=== PATIENT | female | born 1955 | race Caucasian/White ===

== ENCOUNTER 2017-09-17 11:54 | Emergency (ER) | payer MEDICAID ==
[2017-09-17 12:10] VITALS: BP 147/84
[2017-09-17] MEDS ORDERED: Sodium Chloride 0.9% 10 ML Syringe FLUSH PRN (12:27)
[2017-09-17] MEDS ORDERED: Sodium Chloride 0.9% 1,000 ML IV SCH (12:30)
--- NOTE | 2017-09-17 12:32 | EDM.PDOC ---
ED HPI GENERAL MEDICAL PROBLEM - General Chief Complaint: Genitourinary Problem Stated Complaint: POSS DEHYDRATION Time Seen by Provider: 09/17/17 12:18 Source of Information: Reports: Patient, [facility] Records History Limitations: Reports: No Limitations - History of Present Illness INITIAL COMMENTS - FREE TEXT/NARRATIVE: Patient is a 62-year-old female with a history of Alzheimer's and dementia along with frequent UTIs who presents to the ED with concerns of being dehydrated/ urinary tract infection. Staff notes patients urine is foul- smelling. Patient has some mild pain to the suprpubic region. There's been no fever, nausea/vomiting, diarrhea, or other complaints per patient. - Related Data Allergies Allergy/AdvReac Type Severity Reaction Status Date / Time Penicillins Allergy Hives Verified 09/17/17 12:04 Home Meds: Home Meds Acetaminophen [Tylenol Arthritis Pain] 1 tab PO Q4HR PRN 01/27/15 [History] Calcium Carbonate/Vitamin D3 [Calcium 500-Vit D3 200 Caplet] 1 tab PO BID [History] Citalopram [Citalopram HBr] 1 tab PO DAILY 01/27/15 [History] Furosemide [Lasix] 1 tab PO DAILY 01/27/15 [History] Memantine HCl [Namenda Xr] 1 tab PO DAILY 01/27/15 [History] Metoprolol Tartrate 1 tab PO BID 01/27/15 [History] Multivitamin [Multi-Vitamin Daily] 1 tab PO DAILY 01/27/15 [History] Omeprazole 1 tab PO DAILY 01/27/15 [History] Sucralfate [Carafate] 1 tab PO QID 01/27/15 [History] Levofloxacin [Levaquin] 500 mg PO DAILY #9 tablet 08/13/15 [Rx] Past Medical History HEENT History: Reports: Impaired Vision Other HEENT History: wears eyeglasses Cardiovascular History: Reports: Hypertension Gastrointestinal History: Reports: GERD Other Gastrointestinal History: diaphragmatic hernia Genitourinary History: Reports: UTI, Recurrent Other 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 Social & Family History - Tobacco Use Smoking Status *Q: Never Smoker Second Hand Smoke Exposure: No - Caffeine Use Caffeine Use: Reports: None - Alcohol Use Days Per Week of Alcohol Use: 0 - Recreational Drug Use Recreational Drug Use: No - Living Situation & Occupation Living situation: Reports: Single, Extended Care Facility ED ROS GENERAL - Review of Systems Review Of Systems: ROS reveals no pertinent complaints other than HPI. ED EXAM, RENAL/ - Physical Exam Exam: See Below Exam Limited By: Other (Confused) General Appearance: Alert, WD/WN, No Apparent Distress Ears: Hearing Grossly Normal Nose: Normal Inspection Throat/Mouth: Normal Voice, No Airway Compromise, Other (Mildly dry) Neck: Normal Inspection, Supple Respiratory/Chest: No Respiratory Distress, Lungs Clear, Normal Breath Sounds, No Accessory Muscle Use Cardiovascular: Normal Peripheral Pulses, Regular Rate, Rhythm GI/Abdominal: Normal Bowel Sounds, Soft, No Organomegaly, No Distention, Tender (suprapubic region) Rectal (Female) Exam: Normal Rectal Tone, Black Stool, Heme + Stool. No: Hemorrhoids, Perirectal Abscess, Rectal Fissure, Tenderness Extremities: Normal Inspection, Non-Tender, No Pedal Edema Neurological: Alert, CN II-XII Intact, Normal Cognition, No Motor/Sensory Deficits, Confused Psychiatric: Normal Affect, Normal Mood Skin Exam: Warm, Dry, Intact, Normal Color, No Rash Course - Vital Signs Last Recorded V/S: Last Vital Signs Temp 98.1 F 09/17/17 12:00 Pulse 95 09/17/17 12:00 Resp 18 09/17/17 12:00 BP 147/84 H 09/17/17 12:00 Pulse Ox 100 09/17/17 12:00 - Orders/Labs/Meds Orders: Active Orders 24 hr Category Date Time Status Insert Nguyen Catheter [Insert Urinary Catheter] [OM.PC] Care 09/17/17 12:00 Ordered Stat Peripheral IV Care [RC] . DIRECTED Care 09/17/17 12:27 Active Urinary Catheter Assessment [RC] ASDIRECTED Care 09/17/17 12:00 Active CULTURE BLOOD [BC] Stat Lab 09/17/17 13:15 Received CULTURE BLOOD [BC] Stat Lab 09/17/17 13:30 Received CULTURE URINE [RM] Stat Lab 09/17/17 12:15 Received Hemoccult [OCCULT BLOOD DIAGNOSTIC] [OP] Stat Lab 09/17/17 15:30 Ordered Blood Culture x2 Reflex Set [OM.PC] Stat Oth 09/17/17 12:27 Ordered Peripheral IV Insertion Adult [OM.PC] Stat Oth 09/17/17 12:26 Ordered Labs: Laboratory Tests 09/17/17 09/17/17 09/17/17 Range/Units 12:15 13:15 13:15 WBC 10.30 H (3.98-10.04) K/mm3 RBC 2.80 L (3.98-5.22) M/mm3 Hgb 8.8 L (11.2-15.7) gm/L Hct 28.2 L (34.1-44.9) % MCV 100.7 H (79.4-94.8) fl MCH 31.4 (25.6-32.2) pg MCHC 31.2 L (32.2-35.5) g/dl RDW Std Deviation 50.6 H (36.4-46.3) fL Plt Count 315 (182-369) K/mm3 MPV 10.7 (9.4-12.3) fl Neut % (Auto) 77.8 H (34.0-71.1) % Lymph % (Auto) 10.6 L (19.3-51.7) % [place] % (Auto) 10.4 (4.7-12.5) % Eos % (Auto) 0.6 L (0.7-5.8) Baso % (Auto) 0.1 (0.1-1.2) % Neut # (Auto) 8.02 H (1.56-6.13) K/mm3 Lymph # (Auto) 1.09 L (1.18-3.74) K/mm3 [place] # (Auto) 1.07 H (0.24-0.36) K/mm3 Eos # (Auto) 0.06 (0.04-0.36) K/mm3 Baso # (Auto) 0.01 (0.01-0.08) K/mm3 Sodium 142 (136-145) mEq/L Potassium 4.3 (3.5-5.1) mEq/L Chloride 107 (98-107) mEq/L Carbon Dioxide 28 (21-32) mEq/L Anion Gap 11.3 (5-15) BUN 25 H (7-18) mg/dL Creatinine 1.0 (0.55-1.02) mg/dL Est Cr Clr Drug Dosing 45.14 mL/min Estimated GFR (MDRD) 57 (>60) mL/min BUN/Creatinine Ratio 25.0 H (14-18) Glucose 112 H (74-106) mg/dL Lactic Acid (0.4-2.0) mmol/L Calcium 9.1 (8.5-10.1) mg/dL Total Bilirubin 0.6 (0.2-1.0) mg/dL AST 26 (15-37) U/L ALT 35 (14-59) U/L Alkaline Phosphatase 61 (46-116) U/L C-Reactive Protein 0.8 (<1.0) mg/dL Total Protein 6.5 (6.4-8.2) g/dl Albumin 3.0 L (3.4-5.0) g/dl Globulin 3.5 gm/dL Albumin/Globulin Ratio 0.9 L (1-2) Urine Color Light yellow (Yellow) Urine Appearance Slt cloudy H (Clear) Urine pH 6.0 (5.0-8.0) Ur Specific [place] 1.020 (1.005-1.030) Urine Protein Negative (Negative) Urine Glucose (UA) Negative (Negative) Urine Ketones Negative (Negative) Urine Occult Blood Negative (Negative) Urine Nitrite Positive H (Negative) Urine Bilirubin Negative (Negative) Urine Urobilinogen 0.2 (0.2-1.0) Ur Leukocyte Esterase Negative (Negative) Urine RBC Not seen (0-5) /hpf Urine WBC 0-5 (0-5) /hpf Urine WBC Clumps Not seen (NOT SEEN) /hpf Ur Epithelial Cells Not seen (0-5) /hpf Ur Squamous Epith Cells Not seen (0-5) /hpf Urine Bacteria Moderate H (FEW) /hpf Hyaline Casts 10-20 H (0-5) /lpf Urine Mucus Few (FEW) /hpf 09/17/ Range/Units 13:15 WBC (3.98-10.04) K/mm3 RBC (3.98-5.22) M/mm3 Hgb (11.2-15.7) gm/L Hct (34.1-44.9) % MCV (79.4-94.8) fl MCH (25.6-32.2) pg MCHC (32.2-35.5) g/dl RDW Std Deviation (36.4-46.3) fL Plt Count (182-369) K/mm3 MPV (9.4-12.3) fl Neut % (Auto) (34.0-71.1) % Lymph % (Auto) (19.3-51.7) % [place] % (Auto) (4.7-12.5) % Eos % (Auto) (0.7-5.8) Baso % (Auto) (0.1-1.2) % Neut # (Auto) (1.56-6.13) K/mm3 Lymph # (Auto) (1.18-3.74) K/mm3 [place] # (Auto) (0.24-0.36) K/mm3 Eos # (Auto) (0.04-0.36) K/mm3 Baso # (Auto) (0.01-0.08) K/mm3 Sodium (136-145) mEq/L Potassium (3.5-5.1) mEq/L Chloride (98-107) mEq/L Carbon Dioxide (21-32) mEq/L Anion Gap (5-15) BUN (7-18) mg/dL Creatinine (0.55-1.02) mg/dL Est Cr Clr Drug Dosing mL/min Estimated GFR (MDRD) (>60) mL/min BUN/Creatinine Ratio (14-18) Glucose (74-106) mg/dL Lactic Acid 1.7 (0.4-2.0) mmol/L Calcium (8.5-10.1) mg/dL Total Bilirubin (0.2-1.0) mg/dL AST (15-37) U/L ALT (14-59) U/L Alkaline Phosphatase (46-116) U/L C-Reactive Protein (<1.0) mg/dL Total Protein (6.4-8.2) g/dl Albumin (3.4-5.0) g/dl Globulin gm/dL Albumin/Globulin Ratio (1-2) Urine Color (Yellow) Urine Appearance (Clear) Urine pH (5.0-8.0) Ur Specific [place] (1.005-1.030) Urine Protein (Negative) Urine Glucose (UA) (Negative) Urine Ketones (Negative) Urine Occult Blood (Negative) Urine Nitrite (Negative) Urine Bilirubin (Negative) Urine Urobilinogen (0.2-1.0) Ur Leukocyte Esterase (Negative) Urine RBC (0-5) /hpf Urine WBC (0-5) /hpf Urine WBC Clumps (NOT SEEN) /hpf Ur Epithelial Cells (0-5) /hpf Ur Squamous Epith Cells (0-5) /hpf Urine Bacteria (FEW) /hpf Hyaline Casts (0-5) /lpf Urine Mucus (FEW) /hpf Meds: Medications Discontinued Medications Generic Name Dose Route Start Last Admin Trade Name Freq PRN Reason Stop Dose Admin Sodium Chloride 1,000 mls @ 125 mls/hr 09/17/17 12:30 09/17/17 12:55 Normal Saline IV 125 mls/hr ASDIRECTED BASILIO Administration Nitrofurantoin Macrocrystals 100 mg 09/17/17 14:09 09/17/17 14:22 Macrobid PO 09/17/17 14:10 100 mg ONETIME ONE Administration Pantoprazole Sodium 40 mg 09/18/17 15:15 Protonix Iv IVPUSH 09/18/17 15:16 ONETIME ONE Pantoprazole Sodium 40 mg 09/17/17 15:15 09/17/17 15:42 Protonix Iv IVPUSH 09/17/17 15:16 40 mg ONETIME ONE Administration Sodium Chloride 10 ml 09/17/17 12:27 09/17/17 12:45 Saline Flush FLUSH 10 ml ASDIRECTED PRN Administration Keep Vein Open - Re-Assessments/Exams Free Text/Narrative Re-Assessment/Exam: IV established with normal saline 125 mL per hour. Blood cultures will be obtained along with CBC, chem 14, CRP, UA, lactic acid ,and culture the urine. Labs reviewed: White blood cell count 10.30, hemoglobin 8.8, platelet count 315 , neutrophil percentage is 77.8, neutrophil number is 8.02. Sodium 142, potassium 4.3, creatinine 1.0, glucose 112, lactic acid 1.7, CRP 0.8. UA revealed: Urine appearance slightly cloudy, nitrates positive, bacteria moderate, hyaline cast 10-20, urine rbc's not seen, urine wbc's 0-5. Urine culture has been ordered. We'll go ahead and start her on Macrobid 100 mg by mouth. Will also obtain stool Hemoccult with her low at 8.8 which appears to be trending downward from 2015. Unclear if she has a GI bleed or not. Stool Hemoccult was positive for blood. At this point the GI bleed can be worked up by primary care provider. That is scheduling to have the EGD and colonoscopy. There is no marlene blood present. Vital signs are stable. I did order 09/17/17 15:[address] Dash patients PCP. He will see the patient this coming TR for reevaluation and to facilitate further workup for GI bleed. Requests holding off on starting any antibiotics for UTI until cultures comeback. Discharge instructions as documented. 09/17/17 15:58 Prescription for Prilosec called into [facility]. Departure - Departure Time of Disposition: 15:08 Disposition: DC/[facility] to [facility] Condition: Fair Clinical Impression: Foul smelling urine GI bleed Qualifiers: GI bleed type/associated pathology: unspecified gastrointestinal hemorrhage type Qualified Code(s): K92.2 - Gastrointestinal hemorrhage, unspecified Anemia Qualifiers: Anemia type: unspecified type Qualified Code(s): D64.9 - Anemia, unspecified - Discharge Information Instructions: Anemia, Nonspecific, Gastrointestinal Bleeding, [id number] Referrals: Ravinder Dash MD [Primary Care Provider] - 09/18/17 Forms: ED Department Discharge Additional Instructions: Stool was positive for blood. I did speak with Dr. Dash today and he wishes to have the patient be evaluated tomorrow for reevaluation to facilitate GI bleed workup. In the meantime will have the patient take prilosec 40mg PO q am. UA was not positive for infection thus will await for urine culture to tests. Return to the E.D. for any new or worsening symptoms. Continue taking all home medications as prescribed. - My Orders Last 24 Hours: My Active Orders 09/17/17 12:00 Insert Nguyen Catheter [Insert Urinary Catheter] [OM.PC] Stat Urinary Catheter Assessment [RC] ASDIRECTED 09/17/17 12:15 CULTURE URINE [RM] Stat 09/17/17 12:26 Peripheral IV Insertion Adult [OM.PC] Stat 09/17/17 12:27 Peripheral IV Care [RC] . DIRECTED Blood Culture x2 Reflex Set [OM.PC] Stat 09/17/17 13:15 CULTURE BLOOD [BC] Stat 09/17/17 13:30 CULTURE BLOOD [BC] Stat 09/17/17 15:30 Hemoccult [OCCULT BLOOD DIAGNOSTIC] [OP] Stat - Assessment/Plan Last 24 Hours: My Active Orders 09/17/17 12:00 Insert Nguyen Catheter [Insert Urinary Catheter] [OM.PC] Stat Urinary Catheter Assessment [RC] ASDIRECTED 09/17/17 12:15 CULTURE URINE [RM] Stat 09/17/17 12:26 Peripheral IV Insertion Adult [OM.PC] Stat 09/17/17 12:27 Peripheral IV Care [RC] . DIRECTED Blood Culture x2 Reflex Set [OM.PC] Stat 09/17/17 13:15 CULTURE BLOOD [BC] Stat 09/17/17 13:30 CULTURE BLOOD [BC] Stat 09/17/17 15:30 Hemoccult [OCCULT BLOOD DIAGNOSTIC] [OP] Stat
[2017-09-17] MEDS ORDERED: Nitrofurantoin Monohydrate/Macrocrystalline 100 MG Cap PO ONE (14:09)
[2017-09-17] MEDS ORDERED: Pantoprazole 40 MG Vial IVPUSH ONE (15:15)
[2017-09-18] MEDS ORDERED: Pantoprazole 40 MG Vial IVPUSH ONE (15:15)
== END 2017-09-17 16:50 ==
LOC: JD.ED 11:54
DX: K92.2 Gastrointestinal hemorrhage, unspecified (principal); R82.99 Other abnormal findings in urine; D64.9 Anemia, unspecified; I10 Essential (primary) hypertension; Z88.0 Allergy status to penicillin; Z79.899 Other long term (current) drug therapy; Z87.440 Personal history of urinary (tract) infections
CPT/HCPCS: 36415; 51702; 80053; 81001; 83605; 85025; 86140; 87040; 87086; 87088; 87186; 96361; 96374; 99284; A9270; C9113; J7040; J7050; P9612; 99283

== ENCOUNTER 2017-09-23 07:47 | Day surgery (SDC) | payer MEDICAID ==
[~2017-09-23 07:47] MED LIST: Lidocaine 1% 4 ML ONE; Propofol 200 MG/20 ML SDV ONE; fentaNYL 100 MCG/2 ML SDV ONE
--- NOTE | 2017-09-23 08:43 | PCM.PREANE ---
Preanesthetic Assessment - Procedure Proposed Procedure: Diagnostic EGD Diagnostic Colonoscopy - Anesthesia/Transfusion/Family Hx Anesthesia History: Prior Anesthesia Without Reaction Family History of Anesthesia Reaction: No Transfusion History: No Prior Transfusion(s) Intubation History: Unknown - Review of Systems General: No Symptoms Pulmonary: No Symptoms Cardiovascular: No Symptoms Gastrointestinal: No Symptoms Neurological: No Symptoms Other: Reports: None - Physical Assessment NPO Status Date: 09/22/17 NPO Status Time: 23:30 Pulse: 69 O2 Sat by Pulse Oximetry: 100 Respiratory Rate: 16 Blood Pressure: 108/55 Temperature: 37.8 C Height: 1.63 m Weight: 102.058 kg ASA Class: 3 Mental Status: Alert & Oriented x3 Dentition: Reports: Dentures (upper and lower ) Thyro-Mental Finger Breadths: 3 Mouth Opening Finger Breadths: 3 ROM/Head Extension: Full Lungs: Clear to Auscultation, Normal Respiratory Effort Cardiovascular: Regular Rate, Regular Rhythm - Allergies Allergies/Adverse Reactions: Allergies Allergy/AdvReac Type Severity Reaction Status Date / Time Penicillins Allergy Hives Verified 09/17/17 12:04 - Blood Blood Available: No Product(s) Available: None - Anesthesia Plan Pre-Op Medication Ordered: None - Acknowledgements Anesthesia Type Planned: MAC (PHONE CONSENT VIA [facility]- PATIENTS [facility] ) Pt an Appropriate Candidate for the Planned Anesthesia: Yes Alternatives and Risks of Anesthesia Discussed w Pt/Guardian: Yes Pt/Guardian Understands and Agrees with Anesthesia Plan: Yes Additional Comments: Telephone consent via audie PreAnesthesia Questionnaire HEENT History: Reports: Impaired Vision Other HEENT History: wears eyeglasses Cardiovascular History: Reports: Hypertension Gastrointestinal History: Reports: GERD Other Gastrointestinal History: diaphragmatic hernia Genitourinary History: Reports: UTI, Recurrent Other 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 - SUBSTANCE USE Smoking Status *Q: Never Smoker Second Hand Smoke Exposure: No Days Per Week of Alcohol Use: 0 Recreational Drug Use History: No - HOME MEDS Home Medications: Home Meds Acetaminophen [Tylenol Arthritis Pain] 1 tab PO Q4HR PRN 01/27/15 [History] Calcium Carbonate/Vitamin D3 [Calcium 500-Vit D3 200 Caplet] 1 tab PO BID [History] Citalopram [Citalopram HBr] 1 tab PO DAILY 01/27/15 [History] Furosemide [Lasix] 1 tab PO DAILY 01/27/15 [History] Memantine HCl [Namenda Xr] 1 tab PO DAILY 01/27/15 [History] Metoprolol Tartrate 1 tab PO BID 01/27/15 [History] Multivitamin [Multi-Vitamin Daily] 1 tab PO DAILY 01/27/15 [History] Omeprazole 1 tab PO DAILY 01/27/15 [History] Sucralfate [Carafate] 1 tab PO QID 01/27/15 [History] Levofloxacin [Levaquin] 500 mg PO DAILY #9 tablet 08/13/15 [Rx] - CURRENT (IN HOUSE) MEDS Current Meds: Current Medications Discontinued Medications Fentanyl (Sublimaze) Confirm Administered Dose 100 mcg .ROUTE .STK-MED ONE Stop: 09/23/17 07:15 Lidocaine HCl (Xylocaine-Mpf 1%) Confirm Administered Dose 4 mls @ as directed .ROUTE .STK-MED ONE Stop: 09/23/17 07:16 Propofol (Diprivan 20 Ml) Confirm Administered Dose 200 mg .ROUTE .STK-MED ONE Stop: 09/23/17 07:15
[2017-09-23] MEDS ORDERED: Lidocaine 1%/Sod Bicarbonate in NS 8.4% 1 ML Syringe IV PRN (08:44)
[2017-09-23] MEDS ORDERED: Sodium Chloride 0.9% 10 ML Syringe FLUSH PRN (08:44)
[2017-09-23] MEDS ORDERED: Lactated Ringers 1,000 ML IV SCH (08:45)
--- NOTE | 2017-09-23 09:52 | PCM48HPAN ---
Post Anesthesia Note - EVALUATION WITHIN 48HRS OF ANESTHETIC Vital Signs in Normal Range: Yes Patient Participated in Evaluation: Yes Respiratory Function Stable: Yes Airway Patent: Yes Cardiovascular Function Stable: Yes Hydration Status Stable: Yes Pain Control Satisfactory: Yes Nausea and Vomiting Control Satisfactory: Yes Mental Status Recovered: Yes
[2017-09-23 09:55] VITALS: BP 148/81
--- NOTE | 2017-09-23 10:04 | PCM.OPNOTE ---
- General Post-Op/Procedure Note Date of Surgery/Procedure: 09/23/17 Operative Procedure(s): EGD with bx and colonosocopy to cecum Pre Op Diagnosis: GERd and anemia Post-Op Diagnosis: Same Anesthesia Technique: MAC Primary Surgeon: Zaid Javier EBL in mLs: 0 Complications: None Condition: Good
--- NOTE | 2017-09-23 14:50 | OR ---
DATE OF OPERATION: 09/23/2017 SURGEON: Zaid Javier MD POSTOPERATIVE DIAGNOSIS: Anemia, blood loss. PREOPERATIVE DIAGNOSIS: Anemia, blood loss. OPERATION PERFORMED: Colonoscopy to cecum. FINDINGS: Normal. RECOMMENDATION: Repeat colonoscopy in 10 years. ANESTHESIA: Done under IV sedation. DESCRIPTION OF PROCEDURE: The patient having been taken to the endoscopy room, connected to monitoring equipment, given IV sedation for EGD. IV sedation was continued for colonoscopy. She was placed in the left lateral position. Perianal area was inspected with normal rectal exam showing good sphincter tone. A video Olympus colonoscope was introduced into the rectum and threaded up without problem to the cecum, where the appendicular orifice was seen. Prep was excellent. [place] cleansing score grade A and the scope was slowly withdrawn showing the cecum, ascending colon, transverse colon, descending colon, sigmoid colon, and rectum. Findings were above. It was a normal study. The patient tolerated the procedure and sent to recovery room in a stable condition. ESTIMATED BLOOD LOSS: MMODAL /[id number]
--- NOTE | 2017-09-23 14:50 | OR ---
DATE OF OPERATION: 09/23/2017 SURGEON: Zaid Javier MD ADDENDUM: NOTE: The patient has a pyloric channel ulcer and recommendation will be to spread the Prilosec out 20 mg b.i.d. Add in addition to this Carafate 1 g q.i.d. and avoid all nonsteroidals and especially hold the donepezil/Aricept medication and have the patient obtain H. pylori stool test and follow up with Dr. Dash in a week. MMODAL /[id number]
--- NOTE | 2017-09-23 14:50 | OR ---
DATE OF OPERATION: 09/23/2017 SURGEON: Zaid Javier MD PREOPERATIVE DIAGNOSIS: Gastroesophageal reflux disease, anemia. POSTOPERATIVE DIAGNOSIS: Gastroesophageal reflux disease, anemia. OPERATION PERFORMED: Esophagogastroduodenoscopy with biopsy. ANESTHESIA: Done under IV sedation. FINDINGS: Prepyloric channel ulcer measuring about 1 cm across. No active bleeding. The 2nd portion of the duodenum and duodenal bulb were free of any acute pathology. Antrum showed some redness, which was biopsied. Body, cardia, fundus of the stomach were unremarkable. J-maneuver showed intact hiatus. GE junction located at 35 cm, free of any acute process, as was the balance of the esophagus. DESCRIPTION OF PROCEDURE: The patient was taken to the endoscopy room, connected to monitoring equipment, given IV sedation, placed in left lateral position. Bite block was inserted and video Olympus gastroscope placed in the posterior oropharynx. Under direct vision it was threaded past the cricopharyngeus down the esophagus into the stomach. Stomach was insufflated and the scope passed through the pylorus to the 2nd portion of the duodenum. 2nd portion of the duodenum and duodenal bulb were unremarkable, but the pyloric channel was narrowed, scarred and showed a 1 cm ulcer base which was dry and lee. No visible vessel. Biopsies were taken of this area. The antrum showed little redness and this was biopsied. Body, cardia, stomach and fundus were viewed. J-maneuver was performed. Intact hiatus was noted. Scope was withdrawn to the GE junction which was at 35 cm did not show any acute pathology. Rest of the esophagus was viewed. Scope was withdrawn and unremarkable. The patient tolerated the procedure. Specimen sent to Pathology in a labeled container. The patient's IV sedation was continued for colonoscopy. ESTIMATED BLOOD LOSS: MMODAL /[id number]
== END 2017-09-23 10:38 | disposition home or self-care (01) ==
LOC: JD.SDS 07:47
PROVIDERS: ATTEND Surgery
DX: K29.50 Unspecified chronic gastritis without bleeding (principal); K25.9 Gastric ulcer, unspecified as acute or chronic, without hemorrhage or perforation; I10 Essential (primary) hypertension; K21.9 Gastro-esophageal reflux disease without esophagitis; F32.9 Major depressive disorder, single episode, unspecified; Z88.0 Allergy status to penicillin; Z79.899 Other long term (current) drug therapy
CPT/HCPCS: 43239; 45378; J3010; J7120; 00813; J2001; J2704

== ENCOUNTER 2019-07-12 09:44 | Day surgery (SDC) | payer MEDICAID ==
[~2019-07-12 09:44] MED LIST changes: +Lactated Ringers 1,000 ML IV SCH; +Lidocaine 1%/Sod Bicarbonate in NS 8.4% 1 ML Syringe IDERM PRN; +Midazolam 1 MG/ML 2 ML SDV ONE; +Sodium Chloride 0.9% 10 ML Syringe FLUSH PRN; -fentaNYL 100 MCG/2 ML SDV ONE
--- NOTE | 2019-07-12 10:31 | PCM.PREANE ---
Preanesthetic Assessment - Procedure Proposed Procedure: Colonoscopy - Anesthesia/Transfusion/Family Hx Anesthesia History: Prior Anesthesia Without Reaction Family History of Anesthesia Reaction: No Transfusion History: No Prior Transfusion(s) Intubation History: Unknown - Review of Systems General: No Symptoms Pulmonary: No Symptoms, Other (history of asthma ) Cardiovascular: No Symptoms Gastrointestinal: No Symptoms Neurological: Other (alzheimers, intellecutal disablility) Other: Reports: Depression - Physical Assessment NPO Status Date: 07/12/19 NPO Status Time: 07:00 (water with pills this Am according to [place] ) Height: 1.52 m ASA Class: 3 Mental Status: Other (history of alzheimers) Airway Class: Mallampati = 3 Dentition: Reports: Dentures (uppers and lowers ) Thyro-Mental Finger Breadths: 3 Mouth Opening Finger Breadths: 3 ROM/Head Extension: Full Lungs: Clear to Auscultation, Normal Respiratory Effort Cardiovascular: Regular Rate, Regular Rhythm - Allergies Allergies/Adverse Reactions: Allergies Allergy/AdvReac Type Severity Reaction Status Date / Time Penicillins Allergy Hives Verified 07/09/19 09:11 - Blood Blood Available: No - Acknowledgements Anesthesia Type Planned: MAC Pt an Appropriate Candidate for the Planned Anesthesia: Yes Alternatives and Risks of Anesthesia Discussed w Pt/Guardian: Yes Pt/Guardian Understands and Agrees with Anesthesia Plan: Yes PreAnesthesia Questionnaire HEENT History: Reports: Cataract, Other (See Below) Other HEENT History: Dysphagia Cardiovascular History: Reports: Heart Failure, Hypertension, Other (See Below) Other Cardiovascular History: Edema Respiratory History: Reports: Asthma Gastrointestinal History: Reports: GERD, Helicobacter Pylori, Hiatal Hernia, PUD Other Gastrointestinal History: diaphragmatic hernia, dysphagia, peptic ulcer disease Genitourinary History: Reports: None [employer] DIRECT[employer] History: Reports: None Other OB/BYN History: 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 Musculoskeletal History: Reports: Arthritis Neurological History: Reports: Alzheimers Disease Other Neuro History: Dementia Psychiatric History: Reports: Other (See Below) Other Psychiatric History: Intellectual Disability Endocrine/Metabolic History: Reports: None Hematologic History: Reports: Anemia Immunologic History: Reports: None Oncologic (Cancer) History: Reports: None Dermatologic History: Reports: None - Infectious Disease History Infectious Disease History: Reports: Chicken Pox, MRSA - Past Surgical History Head Surgeries/Procedures: Reports: None HEENT Surgical History: Reports: None Cardiovascular Surgical History: Reports: None Respiratory Surgical History: Reports: None GI Surgical History: Reports: Colonoscopy, EGD Female Surgical History: Reports: None, Hysterectomy Endocrine Surgical History: Reports: None Neurological Surgical History: Reports: None Musculoskeletal Surgical History: Reports: None Oncologic Surgical History: Reports: None Dermatological Surgical History: Reports: None - SUBSTANCE USE Smoking Status *Q: Never Smoker Second Hand Smoke Exposure: No Recreational Drug Use History: No - HOME MEDS Home Medications: Home Meds Acetaminophen [Tylenol Arthritis Pain] 650 mg PO BID 01/27/15 [History] Calcium Carbonate/Vitamin D3 [Calcium 500-Vit D3 200 Caplet] 1 tab PO BID [History] Citalopram [Citalopram HBr] 10 mg PO DAILY 01/27/15 [History] Furosemide [Lasix] 20 mg PO DAILY 01/27/15 [History] Memantine HCl [Namenda Xr] 10 mg PO BID 01/27/15 [History] Metoprolol Tartrate 25 mg PO BID 01/27/15 [History] Multivitamin [Multi-Vitamin Daily] 1 tab PO DAILY 01/27/15 [History] Omeprazole 20 mg PO DAILY 01/27/15 [History] Donepezil [Aricept] 10 mg PO BEDTIME 09/23/17 [History] - CURRENT (IN HOUSE) MEDS Current Meds: Current Medications Lactated Ringer's (Ringers, Lactated) 1,000 mls @ 125 mls/hr IV ASDIRECTED BASILIO Stop: 07/12/19 23:00 Lidocaine/Sodium Bicarbonate (Buffered Lidocaine 1% In Ns 8.4%) 0.25 ml IDERM ONETIME PRN PRN Reason: Prior to IV Start Stop: 07/12/19 18:00 Sodium Chloride (Saline Flush) 10 ml FLUSH ASDIRECTED PRN PRN Reason: Keep Vein Open Stop: 07/12/19 18:00 Discontinued Medications Lidocaine HCl (Xylocaine-Mpf 1%) Confirm Administered Dose 4 mls @ as directed .ROUTE .STK-MED ONE Stop: 07/12/19 08:36 Midazolam HCl (Versed 1 Mg/Ml) Confirm Administered Dose 2 mg .ROUTE .STK-MED ONE Stop: 07/12/19 08:36 Propofol (Diprivan 20 Ml) Confirm Administered Dose 200 mg .ROUTE .STK-MED ONE Stop: 07/12/19 08:35
[2019-07-12] MEDS ORDERED: Propofol 200 MG/20 ML SDV ONE ×2 (10:55→11:31)
[2019-07-12 11:45] VITALS: PULSE 62
--- NOTE | 2019-07-12 11:50 | PCM48HPAN ---
Post Anesthesia Note - EVALUATION WITHIN 48HRS OF ANESTHETIC Vital Signs in Normal Range: Yes Patient Participated in Evaluation: Yes Respiratory Function Stable: Yes Airway Patent: Yes Cardiovascular Function Stable: Yes Hydration Status Stable: Yes Pain Control Satisfactory: Yes Nausea and Vomiting Control Satisfactory: Yes Mental Status Recovered: Yes Vital Signs: Last Vital Signs Temp 36.8 C 07/12/19 09:50 Pulse 62 07/12/19 09:50 Resp 16 07/12/19 09:50 BP 139/88 07/12/19 09:50 Pulse Ox 100 07/12/19 09:50
--- NOTE | 2019-07-12 12:21 | OR ---
DATE OF OPERATION: 07/12/2019 SURGEON: Edyta Mishra MD PREOPERATIVE DIAGNOSIS: Melena. POSTOPERATIVE DIAGNOSIS: Descending colon polyp, otherwise normal colon. OPERATION PERFORMED: Colonoscopy with polypectomy. FINDINGS: A 4 mm descending colon polyp removed with cold forceps. COMPLICATIONS: None. INDICATION AND CONSENT: The patient is a 64-year-old female who developed melena with drop in hemoglobin to 8.1 back in March. The patient underwent workup including a CT of abdomen and pelvis which showed findings concerning for inflammation of the descending and sigmoid colon, as well as some thickening of the bladder. The patient underwent cystoscopy by Urology that did not reveal any fistula, and eventually her melena subsided, hemoglobin came back to around 9. The patient was seen in clinic and evaluated for colonoscopy for further evaluation of this bleeding. The patient is a long term patient. Therefore, POA was present and evaluation was discussed with POA including risks, benefits, and options, and informed consent was obtained. Of note, the patient has undergone prior multiple esophagogastroduodenoscopies, most recently in April for bleeding. At that point, there were no ulcers, but there was gastritis and esophagitis. The patient is currently on PPIs. DESCRIPTION OF PROCEDURE: The patient was taken to the procedure room, placed in left lateral decubitus position. Following induction of monitored anesthesia, we began the exam. Exam was begun by perianal and digital rectal examination. There was a mild erythema around the perianal area, likely due to the prep. Then, digital rectal exam was normal. Colonoscope was placed and advanced all the way to the cecum. Ileocecal valve and appendiceal orifice were photographed. Then, the scope was withdrawn with careful examination of the colonic mucosa. In the transverse colon, there was an area that there were mildly prominent veins, but this appeared to be intact with no stigmata of bleeding. Colonoscope was withdrawn to the descending colon. There was a 4 mm polyp at this juncture, which was removed completely with cold forceps. The examination was continued up to the rectum. There were no other abnormalities on retroflexion. There were about grade 2 hemorrhoids, but no stigmata of bleeding. The prep was good and it allowed us to view all polyps potentially and the exam was concluded. The patient tolerated the exam well. After the exam, the patient was taken to the PACU for further recovery. We will wait for the pathology of the polyp that was removed and the patient should follow up with Glenda Quinones in clinic in 2 weeks for further discussion. ANESTHESIA: ESTIMATED BLOOD LOSS: MMODAL /[id number] MTDD
[2019-07-12 13:08] VITALS: BP 126/71
== END 2019-07-12 12:26 | disposition home or self-care (01) ==
LOC: JD.SDS 09:44
PROVIDERS: ATTEND Surgery
DX: D12.4 Benign neoplasm of descending colon (principal); K64.1 Second degree hemorrhoids; I11.0 Hypertensive heart disease with heart failure; I50.9 Heart failure, unspecified; K21.9 Gastro-esophageal reflux disease without esophagitis; K44.9 Diaphragmatic hernia without obstruction or gangrene; D64.9 Anemia, unspecified; J45.909 Unspecified asthma, uncomplicated; G30.9 Alzheimer's disease, unspecified; F02.80 Dementia in other diseases classified elsewhere, unspecified severity, without behavioral disturbance, psychotic disturbance, mood disturbance, and anxiety; F32.9 Major depressive disorder, single episode, unspecified; F79 Unspecified intellectual disabilities; M19.90 Unspecified osteoarthritis, unspecified site; Z88.0 Allergy status to penicillin
CPT/HCPCS: 45380; J2001; J2250; J2704; J7120; 00811

== ENCOUNTER 2023-03-16 08:50 | Inpatient (IN) | payer MEDICARE, MEDICAID ==
[~2023-03-16 08:50] MED LIST changes: -Lactated Ringers 1,000 ML IV SCH; -Lidocaine 1% 4 ML ONE; -Lidocaine 1%/Sod Bicarbonate in NS 8.4% 1 ML Syringe IDERM PRN; -Midazolam 1 MG/ML 2 ML SDV ONE; -Propofol 200 MG/20 ML SDV ONE; +Sodium Chloride 0.9% 1,000 ML IV ONE; -Sodium Chloride 0.9% 10 ML Syringe FLUSH PRN
[2023-03-16] MEDS ORDERED: Lactated Ringers 1,000 ML IV SCH ×2 (09:15→12:00)
[2023-03-16] MEDS ORDERED: Sodium Chloride 0.9% 100 ML ONE (09:52)
[2023-03-16] MEDS ORDERED: cefTRIAXone 2 GM Vial ONE (09:52)
[2023-03-16] MEDS ORDERED: cefTRIAXone 2 GM in Sodium Chloride 0.9% 100 ML IV ONE (09:53)
[2023-03-16 10:01] LABS: HEMATOCRIT 13.1 % (34.1-44.9); MEAN CORPUSCULAR HEMOGLOBIN 25.7 pg (25.6-32.2); MEAN CORPUSCULAR HGB CONC 27.5 g/dl (32.2-35.5); MEAN CORPUSCULAR VOLUME 93.6 fl (79.4-94.8); MEAN PLATELET VOLUME 10.1 fl (9.4-12.3); WHITE BLOOD CELL COUNT,WBC 18.97 K/mm3 (3.98-10.04)
[2023-03-16 10:06] LABS: HEMOGLOBIN 3.6 gm/dl (11.2-15.7); PLATELET COUNT,PLT 718 K/mm3 (182-369)
[2023-03-16 10:08] LABS: INR 1.07; PROTHROMBIN TIME 11.4 SECONDS (9.7-12.0)
[2023-03-16 10:09] LABS: PTT,PARTIAL THROMBOPLSTIN TIME 22.2 SECONDS (21.7-31.4)
[2023-03-16 10:20] LABS: APPEARANCE,URINE CLOUDY (Clear); BILIRUBIN,URINE NEGATIVE (Negative); COLOR,URINE YELLOW (Yellow); GLUCOSE,URINE NEGATIVE (Negative); KETONES,URINE NEGATIVE (Negative); LEUKOCYTE ESTERASE,URINE 3+ (Negative); NITRITE,URINE NEGATIVE (Negative); OCCULT BLOOD,URINE TRACE-INTACT (Negative); PH,URINE 5.5 (5.0-8.0); PROTEIN,URINE TRACE (Negative); UROBILINOGEN,URINE 0.2 (0.2-1.0)
[2023-03-16 10:29] LABS: LACTIC ACID 4.1 mmol/L (0.4-2.0)
[2023-03-16 10:32] LABS: A/G RATIO 0.6 (1-2); ALANINE AMINOTRANSFERASE,ALT 23 U/L (14-59); ALBUMIN 2.1 g/dl (3.4-5.0); ALKALINE PHOSPHATASE 53 U/L (46-116); ANION GAP 17.6 (5-15); ASPARTATE AMNIOTRANSFERASE,AST 13 U/L (15-37); BILIRUBIN TOTAL 0.5 mg/dL (0.2-1.0); BLOOD UREA NITROGEN,BUN 80 mg/dL (7-18); BUN/CREATININE RATIO 38.1 (14-18); C-REACTIVE PROTEIN 1.4 mg/dL (<1.0); CALCIUM 7.9 mg/dL (8.5-10.1); CARBON DIOXIDE,CO2 21 mEq/L (21-32); CHLORIDE,CL 108 mEq/L (98-107); CKMB 0.8 ng/ml (0-3.6); CREATININE 2.1 mg/dL (0.55-1.02); ESTIMATED GFR 26 mL/min (>60); GLUCOSE RANDOM 125 mg/dL (70-99); MAGNESIUM 2.3 mg/dL (1.8-2.4); POTASSIUM,K 4.6 mEq/L (3.5-5.1); PROTEIN TOTAL,TP 5.5 g/dl (6.4-8.2); SODIUM,NA 142 mEq/L (136-145); TROPONIN I HIGH SENSITIVITY 8 pg/mL (<=51)
[2023-03-16 10:37] LABS: BACTERIA,URINE MANY /hpf (FEW); MUCUS,URINE NOT SEEN /hpf (FEW); SQUAMOUS EPITHELIAL CELLS,UR 20-30 /hpf (0-5); WBC CLUMPS,URINE FEW /hpf (NOT SEEN); WBC,URINE 20-30 /hpf (0-5)
[2023-03-16 10:43] LABS: BAND PERCENT MAN 0 % (0-10); BASOPHILS PERCENT MAN 0 (0.1-1.2); EOSINOPHILS PERCENT MAN 0 % (0.7-5.8); LYMPHOCYTES % ATYPICAL MANUAL 0 %; LYMPHOCYTES PERCENT MAN 11 % (20-40); MONOCYTES PERCENT MAN 3 % (2-10)
[2023-03-16 10:44] LABS: PLATELET COUNT ESTIMATE MARKED INC; WBC CORRECTED 17.6 K/mm3
[2023-03-16 10:47] LABS: ANISOCYTOSIS 1+ SLIGHT; POIKILOCYTOSIS 2+ MODERATE; POLYCHROMASIA 1+ SLIGHT; SCHISTOCYTES 1+ SLIGHT
[2023-03-16 10:48] LABS: ACANTHOCYTES 1+ SLIGHT; HYPOCHROMASIA 3+ MARKED; TARGET CELLS 3+ MARKED; TEARDROP CELLS 1+ SLIGHT; TOXIC GRANULATION 1+ SLIGHT
[2023-03-16] MEDS ORDERED: Pantoprazole 40 MG in Sodium Chloride 0.9% 100 ML IV ONE (11:37)
[2023-03-16] MEDS ORDERED: Sodium Chloride 0.9% 1,000 ML IV SCH (11:45)
[2023-03-16] MEDS ORDERED: Furosemide 40 MG/4 ML VIAL IVPUSH ONE (12:05)
[2023-03-16] MEDS: Pantoprazole 40 MG Vial IVPUSH SCH ×2 (15:01→21:27)
[2023-03-16] MEDS: Lactated Ringers 1,000 ML IV SCH (21:26)
[2023-03-16] MEDS ORDERED: Furosemide 20 MG/2 ML VIAL IVPUSH ONE (21:30)
[2023-03-16 22:44] LABS: HEMATOCRIT 28.1 % (34.1-44.9)
[2023-03-16 22:47] LABS: HEMOGLOBIN 9.2 gm/dl (11.2-15.7)
[2023-03-16 23:00] LABS: LACTIC ACID 0.8 mmol/L (0.4-2.0)
[2023-03-17 05:30] LABS: BASOPHILS ABSOLUTE AUTO 0.03 K/mm3 (0.01-0.08); BASOPHILS PERCENT AUTO 0.2 % (0.1-1.2); EOSINOPHILS ABSOLUTE AUTO 0.02 K/mm3 (0.04-0.36); EOSINOPHILS PERCENT AUTO 0.1 (0.7-5.8); HEMATOCRIT 25.3 % (34.1-44.9); HEMOGLOBIN 8.2 gm/dl (11.2-15.7); IMMATURE GRAN ABSOLUTE AUTO 0.09 K/mm3 (0.00-0.10); IMMATURE GRAN PERCENT AUTO 0.6 % (<=1.0); LYMPHOCYTES ABSOLUTE AUTO 1.34 K/mm3 (1.18-3.74); LYMPHOCYTES PERCENT AUTO 9.5 % (19.3-51.7); MEAN CORPUSCULAR HGB CONC 32.4 g/dl (32.2-35.5); MEAN PLATELET VOLUME 10.2 fl (9.4-12.3); MONOCYTES ABSOLUTE AUTO 1.06 K/mm3 (0.24-0.36); MONOCYTES PERCENT AUTO 7.5 % (4.7-12.5); NEUTROPHILS ABSOLUTE AUTO 11.63 K/mm3 (1.56-6.13); NEUTROPHILS PERCENT AUTO 82.1 % (34.0-71.1); RED BLOOD CELL COUNT 2.83 M/mm3 (3.98-5.22); WHITE BLOOD CELL COUNT,WBC 14.17 K/mm3 (3.98-10.04)
[2023-03-17 05:35] LABS: MEAN CORPUSCULAR VOLUME 89.4 fl (79.4-94.8)
[2023-03-17 05:36] LABS: PLATELET COUNT,PLT 365 K/mm3 (182-369)
[2023-03-17 05:56] LABS: A/G RATIO 0.7 (1-2); ALANINE AMINOTRANSFERASE,ALT 14 U/L (14-59); ALBUMIN 2.1 g/dl (3.4-5.0); ALKALINE PHOSPHATASE 45 U/L (46-116); ASPARTATE AMNIOTRANSFERASE,AST 13 U/L (15-37); BILIRUBIN TOTAL 0.5 mg/dL (0.2-1.0); BLOOD UREA NITROGEN,BUN 70 mg/dL (7-18); BUN/CREATININE RATIO 63.6 (14-18); CALCIUM 7.9 mg/dL (8.5-10.1); CARBON DIOXIDE,CO2 26 mEq/L (21-32); CREATININE 1.1 mg/dL (0.55-1.02); ESTIMATED GFR 56 mL/min (>60); GLUCOSE RANDOM 137 mg/dL (70-99); PROTEIN TOTAL,TP 5.1 g/dl (6.4-8.2)
[2023-03-17 06:15] LABS: POTASSIUM,K 3.2 mEq/L (3.5-5.1)
[2023-03-17 06:28] LABS: ANION GAP 13.2 (5-15); CHLORIDE,CL 113 mEq/L (98-107); SODIUM,NA 149 mEq/L (136-145)
[2023-03-17 06:34] LABS: SLIDE REVIEW ABNORMAL SMEAR
[2023-03-17] MEDS: Pantoprazole 40 MG Vial IVPUSH SCH ×2 (08:53→20:54)
[2023-03-17] MEDS ORDERED: cefTRIAXone 2 GM in Sodium Chloride 0.9% 100 ML IV SCH (09:00)
[2023-03-17] MEDS ORDERED: Lactated Ringers 500 ML IV ONE (09:14)
[2023-03-17] MEDS ORDERED: Sodium Chloride 0.9% 500 ML ONE (09:35)
[2023-03-17] MEDS ORDERED: Furosemide 20 MG/2 ML VIAL IVPUSH ONE (13:30)
[2023-03-17] MEDS: Lactated Ringers 1,000 ML IV SCH (17:32)
[2023-03-18] MEDS: Lactated Ringers 1,000 ML IV SCH (05:55)
[2023-03-18] MEDS ORDERED: Morphine 2 MG/ML SYRINGE IVPUSH PRN (06:00)
[2023-03-18 08:31] VITALS: BP 120/80; PULSE 125
== END 2023-03-18 16:15 | DRG 871 ==
LOC: JD.ED 08:50 → JD.MS 11:56
PROVIDERS: ADMIT Internal Medicine; ATTEND Internal Medicine
PROC: 3E03329 Introduction of Other Anti-infective into Peripheral Vein, Percutaneous Approach (ICD-10-PCS; principal; 2023-03-16)
PROC: 02HV33Z Insertion of Infusion Device into Superior Vena Cava, Percutaneous Approach (ICD-10-PCS; 2023-03-16)
PROC: 30233N1 Transfusion of Nonautologous Red Blood Cells into Peripheral Vein, Percutaneous Approach (ICD-10-PCS; 2023-03-16)
PROC: 30233K1 Transfusion of Nonautologous Frozen Plasma into Peripheral Vein, Percutaneous Approach (ICD-10-PCS; 2023-03-16)
PROC: 30233N1 Transfusion of Nonautologous Red Blood Cells into Peripheral Vein, Percutaneous Approach (ICD-10-PCS; 2023-03-17)
DX: A41.9 Sepsis, unspecified organism (principal); R57.1 Hypovolemic shock; R65.21 Severe sepsis with septic shock; N39.0 Urinary tract infection, site not specified; K92.2 Gastrointestinal hemorrhage, unspecified; D62 Acute posthemorrhagic anemia; J98.11 Atelectasis; D75.839 Thrombocytosis, unspecified; K21.9 Gastro-esophageal reflux disease without esophagitis; E87.70 Fluid overload, unspecified; D64.9 Anemia, unspecified; I11.0 Hypertensive heart disease with heart failure; M19.90 Unspecified osteoarthritis, unspecified site; I50.9 Heart failure, unspecified; G30.0 Alzheimer's disease with early onset; F02.C0 Dementia in other diseases classified elsewhere, severe, without behavioral disturbance, psychotic disturbance, mood disturbance, and anxiety; Z66 Do not resuscitate; Z51.5 Encounter for palliative care; Z88.0 Allergy status to penicillin; Z87.11 Personal history of peptic ulcer disease; Z90.710 Acquired absence of both cervix and uterus; Z98.890 Other specified postprocedural states
CPT/HCPCS: 36415; 36430; 36556; 51701; 51702; 71045; 71045-26; 80053; 81001; 82553; 83605; 83735; 83880; 84484; 85007; 85014; 85018; 85025; 85027; 85610; 85730; 86140; 86850; 86900; 86901; 86922; 87040; 87086; 87641; 93005; 93010; 94761; 96361; 96365; 96366; 96372; 96375; 99223; 99285; 99285-25; C1751; C9113; J0696; J1940; J3490; J7030; J7120; P9016; P9017